=== PATIENT | female | born 1985 | race Hispanic/Latino ===

== ENCOUNTER 2021-01-08 10:44 | Emergency (ER) | payer MEDICAID ==
[2021-01-08] MEDS ORDERED: SODIUM CHLORIDE 0.9% 1000ML 1,000 ML IV ONE (13:08)
[2021-01-08] MEDS ORDERED: ONDANSETRON HCL 4 MG/2 ML VIAL ONE (13:08)
[2021-01-08 13:17] LABS: BASOPHILS % (AUTO) 0.6 % (0.0-5.0); EOSINOPHILS % (AUTO) 1.6 % (0.0-8.0); HEMATOCRIT 40.8 % (36-48); LYMPHOCYTES % (AUTO) 30.4 % (21.0-51.0); MEAN CORPUSCULAR HEMOGLOBIN 27.6 pg (27.0-33.0); MEAN CORPUSCULAR HGB CONC 32.1 g/dL (32.0-36.0); MEAN CORPUSCULAR VOLUME 86.1 fL (79-99); MONOCYTES % (AUTO) 4.8 % (3.0-13.0); NEUTROPHILS % (AUTO) 62.4 % (40.0-77.0); PLATELET COUNT (AUTO) 248 K/uL (130-400); RED BLOOD CELL COUNT(AUTO) 4.74 MIL/uL (4.00-5.50); RED CELL DISTRIBUTION WIDTH 12.8 % (11.0-15.5); WHITE BLOOD COUNT (AUTO) 8.5 K/uL (4.8-10.8)
[2021-01-08 13:28] LABS: CREATININE 0.7 mg/dL (0.5-1.5); POTASSIUM 4.1 mmol/L (3.5-5.1)
[2021-01-08 13:32] LABS: ALBUMIN 3.7 g/dL (3.5-5.0); BILIRUBIN,TOTAL 0.3 mg/dL (0.2-1.0)
[2021-01-08 13:45] LABS: APPEARANCE,URINE CLEAR (CLEAR); BILIRUBIN,URINE NEGATIVE (NEGATIVE); COLOR,URINE YELLOW (YELLOW); GLUCOSE, URINE (UA) NEGATIVE (NEGATIVE); KETONES,URINE NEGATIVE (NEGATIVE); LEUKOCYTE ESTERASE ,URINE NEGATIVE (NEGATIVE); NITRATE,URINE NEGATIVE (NEGATIVE); OCCULT BLOOD,URINE NEGATIVE (NEGATIVE); PH,URINE 6.5 (5.0-8.0); PROTEIN,URINE NEGATIVE (NEGATIVE); UROBILINOGEN,URINE 0.2 mg/dL (0.2-1.0)
[2021-01-08] MEDS ORDERED: IOHEXOL 350 MG/ML 100ML INFUS..BTL IV ONE (14:17)
[2021-01-08] MEDS ORDERED: MAGNESIUM CITRATE 296 ML SOLUTION ONE (15:02)
[2021-01-08] MEDS ORDERED: LACTULOSE 20 GM/30 ML UDCUP ONE (15:02)
== END 2021-01-08 15:10 | disposition home or self-care (01) ==
LOC: EDH 10:44
DX: K59.00 Constipation, unspecified (principal); Z91.041 Radiographic dye allergy status; Z88.0 Allergy status to penicillin; Z98.890 Other specified postprocedural states
CPT/HCPCS: 36415; 74177; 80053; 81003; 81025; 83690; 84484; 84702; 85025; 96374; 99285; J2405; J7030; Q9967

== ENCOUNTER 2021-08-05 16:45 | Emergency (ER) | payer MEDICAID ==
[~2021-08-05] VITALS: Ht 160 cm; Wt 120.7 kg
[2021-08-05 16:50] VITALS: BP 121/74
[2021-08-05 17:36] LABS: BASOPHILS % (AUTO) 0.6 % (0.0-5.0); HEMATOCRIT 37.8 % (36-48); LYMPHOCYTES % (AUTO) 27.9 % (21.0-51.0); MEAN CORPUSCULAR HEMOGLOBIN 27.8 pg (27.0-33.0); MEAN CORPUSCULAR HGB CONC 32.5 g/dL (32.0-36.0); MEAN CORPUSCULAR VOLUME 85.3 fL (79-99); MONOCYTES % (AUTO) 7.2 % (3.0-13.0); NEUTROPHILS % (AUTO) 63.1 % (40.0-77.0); PLATELET COUNT (AUTO) 268 K/uL (130-400); RED BLOOD CELL COUNT(AUTO) 4.43 MIL/uL (4.00-5.50); RED CELL DISTRIBUTION WIDTH 12.3 % (11.0-15.5); WHITE BLOOD COUNT (AUTO) 8.2 K/uL (4.8-10.8)
[2021-08-05 17:42] LABS: CARBON DIOXIDE 28 mmol/L (21-32); CHLORIDE 105 mmol/L (101-111); CREATININE 0.8 mg/dL (0.5-1.5); GLOMERULAR FILTR. RATE CALC 87 mL/min (>60); GLUCOSE,RANDOM 90 mg/dL (70-105); POTASSIUM 3.3 mmol/L (3.5-5.1); SODIUM SERUM 140 mmol/L (136-145); UREA NITROGEN, BLOOD 11 mg/dL (7-18)
[2021-08-05 17:53] LABS: ALANINE AMINOTRANSFERASE 16 U/L (12-78); ALBUMIN 3.6 g/dL (3.5-5.0); ASPARTATE AMINOTRANSFERASE 10 U/L (10-37); BILIRUBIN,TOTAL 0.2 mg/dL (0.2-1.0); CREATINE KINASE, TOTAL 30 U/L (21-232); MYOGLOBIN 18 ng/mL (10-92); TOTAL PROTEIN, SERUM 7.4 g/dL (6.0-8.3)
[2021-08-05] MEDS ORDERED: KETOROLAC 30MG VIAL (30MG/ML) IM ONE (20:00)
[2021-08-05] MEDS ORDERED: MECLIZINE HCL 25 MG TABLET PO ONE (20:00)
[2021-08-05] MEDS ORDERED: FIORIT PO (20:10)
== END 2021-08-05 20:31 | disposition home or self-care (01) ==
LOC: EDH 16:45
DX: G43.909 Migraine, unspecified, not intractable, without status migrainosus (principal); R25.3 Fasciculation
CPT/HCPCS: 36415; 80053; 82550; 83874; 84484; 85025; 96372; 99283; J1885

== ENCOUNTER → 2023-03-06 | Outpatient (CLI) | payer MEDICAID ==
[~2023-03-06] MED LIST: FIORIT PO
== END | disposition home or self-care (01) ==
LOC: SHCH 09:51
PROVIDERS: ATTEND Internal Medicine Cardiovascular Disease
DX: R94.31 Abnormal electrocardiogram [ECG] [EKG] (principal)
CPT/HCPCS: 93306

== ENCOUNTER 2024-09-20 13:38 | Emergency (ER) | payer MEDICAID ==
[~2024-09-20] VITALS: Ht 160 cm; Wt 68.0 kg
--- NOTE | 2024-09-20 13:52 | ERN ---
ED Note History of Present Illness Stated Complaint: SYNCOPE Chief Complaint: Syncope Time Seen by MD: 13:44 Dictation: PATIENT IS A 39-YEAR-OLD FEMALE HERE WITH HER WITH COMPLAINTS OF HEAVY VAGINAL BLEEDING AND HAD A NEAR SYNCOPAL EPISODE HOUR PRIOR TO ARRIVAL AND CALLED EMS FROM A [facility]. SHE HAS PAPERWORK THAT SHOWED SHE WAS JUST DISCHARGED FROM [facility] AFTER BEING SEEN ON 09/19, AND 09/20 TODAY AND DIAGNOSED WITH A MISCARRIAGE. SHE STATES SHE WAS UNAWARE THAT SHE WAS . SHE STATES SHE IS STILL HAVING HEAVY VAGINAL BLEEDING HOWEVER HAS NOT BEEN TO SEE HER DOCTOR. Allergies: Coded Allergies: Penicillins (Unverified Allergy, Unknown, 08/05/21) iodine (Unverified Allergy, Unknown, 08/05/21) Home Meds Active Scripts Butalb/Acetaminophen/Caffeine (Fioricet) 1 Tab Tab, 1 TAB PO TID for pain, #25 TAB Prov:ROCIO WILSON MD 08/05/21 Past Medical History Past Medical History: Other Additional Past Medical Hx: ORTHOSTATIC HYPOTENSION Surgical History: Social History: Lives with family : 5 Para: 3 Aborts: 2 RN Note Reviewed/Agreed w/PFSH: Yes Review of System Dictation CONSTITUTIONAL: NEGATIVE EXCEPT FOR HPI HEAD/FACE: NEGATIVE EXCEPT FOR HPI EENT: NEGATIVE EXCEPT FOR HPI RESPIRATORY: NEGATIVE EXCEPT FOR HPI GASTROINTESTINAL/ABDOMINAL: NEGATIVE EXCEPT FOR HPI GENITOURINARY: NEGATIVE EXCEPT FOR HPI VAGINAL BLEEDING MUSCULOSKELETAL: NEGATIVE EXCEPT FOR HPI INTEGUMENTARY: NEGATIVE EXCEPT FOR HPI NEUROLOGICAL/PSYCH: NEGATIVE EXCEPT FOR HPI HEMATOLOGIC/LYMPHATIC: NEGATIVE EXCEPT FOR HPI ALL SYSTEMS NEGATIVE, EXCEPT NOTED ABOVE. 13 POINT REVIEW OF SYSTEMS ASSESSED AND ALL NEGATIVE EXCEPT FOR ABOVE. Initial Vital Sign VS Vital Signs Date Time Temp Pulse Resp B/P (MAP) Pulse Ox O2 Delivery O2 Flow Rate FiO2 09/20/24 13:39 97.9 83 16 108/74 100 Room Air 0 09/20/24 14:00 21 Physical Exam Dictation VITAL SIGNS REVIEWED APPEARS WEAK GENERAL APPEARANCE: ALERT, ORIENTED X 3, NO ACUTE DISTRESS, WELL DEVELOPED, NOURISHED. HEAD AND FACE: NON-TRAUMATIC. EYES: PERRL, PINK CONJUNCTIVAS, EYELID NO TRAUMA, ANTERIOR CHAMBER WITH ARCUS SENILIS. EARS: PINNAS INTACT AND NO SIGNS OF TRAUMA OR ERYTHEMA EAR CANALS CLEAR AND NO DISCHARGE TM NO ERYTHEMA NOSE: NO DISCHARGE, NO BLEEDING. OROPHARYNX: MOUTH NORMAL, TONGUE PINK, PHARYNX CLEAR,NO ERYTHEMA, TONSILS NO EXUDATES, NO ABSCESSES NOTED, MUCOUS MEMBRANE MOIST NECK: SUPPLE, NON-TENDER, NO THYROMEGALY, NO MASSES, NO JVD, NO BRUITS BREAST:DEFERRED CHEST:NO TENDERNESS, NO CREPITUS, NO PARADOXICAL MOVEMENT, NO RETRACTIONS LUNGS:CLEAR, WELL-VENTILATED, SYMMETRIC, NO RALES, NO WHEEZING, NO RHONCHI, NO STRIDOR, GOOD BREATH SOUNDS BILATERALLY HEART: REGULAR RATE, REGULAR RHYTHM, NO MURMUR, NO GALLOPS VASCULAR: NO PERIPHERAL EDEMA, ABDOMEN: SOFT, POSITIVE BOWEL SOUNDS, NONDISTENDED, NO GUARDING, NONTENDER, NO REBOUND, NO MASSES NO HEPATOMEGALY, NO SPLENOMEGALY, NO HERNÁNDEZ'S SIGN, NO HERNIAS. RECTAL: DEFERRED GENITAL: DEFERRED NEUROLOGICAL: NORMAL SPEECH, MOTOR FUNCTION INTACT, SENSORY FUNCTION INTACT MUSCULOSKELETAL: NECK NONTENDER, FULL RANGE OF MOTION, BACK NONTENDER, FULL RANGE OF MOTION, EXTREMITIES: NONTENDER, FULL RANGE OF MOTION SKIN: COLOR PINK, DRY, NO TURGOR, NO RASH, NO LACERATIONS, NO ABRASIONS, NO CONTUSIONS. LYMPHATIC: DEFERRED Results (Laboratory/Radiology) Laboratory/Radiology Laboratory Tests Test 09/20/24 14:00 White Blood Count 12.6 K/uL (4.8-10.8) H Red Blood Count 3.92 MIL/uL (4.00-5.50) L Hemoglobin 10.8 g/dL (12.0-16.0) L Hematocrit 33.6 % (36-48) L Mean Corpuscular Volume 85.7 fL (79-99) Mean Corpuscular Hemoglobin 27.6 pg (27.0-33.0) Mean Corpuscular Hemoglobin Concent 32.1 g/dL (32.0-36.0) Red Cell Distribution Width 13.2 % (11.0-15.5) Platelet Count 290 K/uL (130-400) Mean Platelet Volume 10.0 fL (7.5-10.5) Immature Granulocyte % (Auto) 0.4 % (0-1) Neutrophils (%) (Auto) 79.2 % (40.0-77.0) H Lymphocytes (%) (Auto) 16.1 % (21.0-51.0) L Monocytes (%) (Auto) 3.8 % (3.0-13.0) Eosinophils (%) (Auto) 0.2 % (0.0-8.0) Basophils (%) (Auto) 0.3 % (0.0-5.0) Neutrophils # (Auto) 10.0 K/uL (1.8-7.7) H Lymphocytes # (Auto) 2.0 K/uL (1.0-4.8) Monocytes # (Auto) 0.5 K/uL (0.1-1.0) Eosinophils # (Auto) 0.03 K/uL (0.00-0.70) Basophils # (Auto) 0.04 K/uL (0.00-0.20) Absolute Immature Granulocyte (auto 0.05 K/uL (0-1) Nucleated Red Blood Cells 0.0 % (0.0-0.19) Prothrombin Time 11.4 SEC (9.6-11.6) Prothromb Time International Ratio 1.02 (0.85-1.15) Activated Partial Thromboplast Time 28.5 SEC (26.3-35.5) Sodium Level 135 mmol/L (136-145) L Potassium Level 4.4 mmol/L (3.5-5.1) Chloride Level 102 mmol/L (101-111) Carbon Dioxide Level 25 mmol/L (21-32) Blood Urea Nitrogen 8 mg/dL (7-18) Creatinine 0.8 mg/dL (0.5-1.0) Glomerular Filtration Rate Calc 97 mL/min (>90) Random Glucose 149 mg/dL (70-105) H Total Calcium 8.4 mg/dL (8.5-10.1) L Troponin I High Sensitivity < 4 ng/L (4-50) L Human Chorionic Gonadotropin, Quant 54976 mIU/mL (0-5) H 1450/no IUP seen on ultrasound. Clot seen in cervix only Labs Reviewed?: Yes ED Course ED Course Orders Procedure Category Date Status Time Cbc With Differential LAB 09/20/24 Complete 13:49 Hcg,Quantitative LAB 09/20/24 Complete 13:49 0.9%Nacl 1000ml (Ns PHA 09/20/24 Complete 1000ml) 14:00 Type And Screen BBK 09/20/24 Complete 13:49 Basic Metabolic Panel LAB 09/20/24 Complete 13:49 Pt And Ptt LAB 09/20/24 Complete 13:49 12 Lead Ekg Tracing- EKG 09/20/24 Complete Technical 14:21 Troponin I High LAB 09/20/24 Complete Sensitivity 14:21 Us Pelvic Non-Ob Comp US 09/20/24 Resulted 13:49 Midodrine Hcl 5 Mg PHA 09/20/24 Logged Tablet (Proamatine 5 15:30 Current Medications Medications (Trade) Dose Ordered Sig/Stephen Route PRN Reason Start Time Stop Time Status Last Admin Dose Admin Midodrine (PROAMatine 5 MG TABLET) 10 mg ONCE ONCE PO 09/20/24 15:30 09/20/24 15:31 UNV Sodium Chloride 1,000 ml @ 0 mls/hr ONCE ONCE IV 09/20/24 14:00 09/20/24 14:01 DC 09/20/24 14:44 Vital Signs Date Time Temp Pulse Resp B/P (MAP) Pulse Ox O2 Delivery O2 Flow Rate FiO2 09/20/24 14:45 97.9 75 18 107/73 100 Room Air* 0 09/20/24 14:20 97.9 69 18 104/55 100 Room Air* 0 21 09/20/24 14:08 62 16 59/40 98 Room Air* 0 09/20/24 14:00 89 20 119/69 98 Room Air* 0 09/20/24 13:39 97.9 83 16 108/74 100 Room Air 0 1425/PATIENT HAD A NEAR SYNCOPAL EPISODE HIM LAVERN DOWN TO HEART RATE 59 WHILE LYING IN BED. SHE IS HEMODYNAMICALLY STABLE IS ALERT CURRENTLY RECEIVING A BOLUS OF NORMAL SALINE. LABS STILL PENDING NO CHEST PAIN NO BACK PAIN NO HEADACHE. 1507/patient is hemodynamically stable she states she has a history of near syncopal episodes and hypotension. She sees /hazardous materials analyst's and he prescribed midodrine 10 mg every 6 hours while awake. She has only had one dose this morning and we will be given to her now. We will be discharged home and is aware she had a miscarriage she is also aware we do not have medical billing instructor services t hat this hospital in the see her doctor for referral however there was no retained products of conception. Medical Decision Making MDM MDM: Differential diagnosis: Complete a B, incomplete a B, anemia/dehydration/electrolyte imbalance/dehydration/arrhythmia Rationale: Tests considered and ordered secondary to shared decision making include: EKG/labs/radiology Previous outside records reviewed: Old ER visits. Risk of complication and/or morbidity or mortality of patient management: None Medications-Per medication reconciliation Need for hospitalization: Patient does not meet criteria for hospitalization. No Need for emergency major/minor surgery: No There are no social concerns with this patient. Prescription drug management none Prescriptions will include symptomatic care Patient's prior external medical records from other ER visits were reviewed by me as indicated. Prior testing and results from previous visits were reviewed. Prior tests were taken into account with medical decision making and resource utilization, independent historian/historians were used to obtain complete medical history. I independently interpreted the test that were performed, results were reviewed by me and considered findings on radiology if ordered. Medical management and examination interpretation discussions were had by me with other qualified healthcare professionals as indicated for the patient's care. DX & DISP Disposition: Discharge Departure Impression: Primary Impression: Near syncope Additional Impressions: Complete miscarriage, Hyperkalemia, History of hypotension Condition: Stable Additional Instructions: Follow-up with primary care provider in 1 to 2 days. Take medications as directed here in the emergency room. Okay to continue home medications unless otherwise discussed during your visit in the emergency room today. Return to your nearest emergency room if symptoms worsen or if there is no improvement. Call 911 if you need immediate assistance. Take Tylenol or Motrin [id number] as needed and if no contraindications are present. Increase oral hydration. A wound culture or urine culture was ordered here in the emergency room department please follow-up with primary care provider and advise them to get repeat ports from our facility. If you had any Gato wrap/splints that were applied here, please do not remove them until you see your primary care or specialty. Take your midodrine 10 mg every 6 hours as directed by your hazardous materials analyst's. See your primary care doctor today for referral to an soap press feeder doctor Referrals: MAXIM TOBIAS DO (PCP) Time of Disposition: 15:11 I have reviewed the case, and I agree with, Diagnosis and Plan JOSSE IBARRA NP Sep 20, 2024 13:52
--- NOTE | 2024-09-20 14:10 | NUR ---
pt sustained brief syncopal episode. witnessed by EMS, nursing staff and family. pt was noted to have become hypotensive and heart rate noted to have dropped over 20 bpm. provider ALICIA yoo was informed and came to evaluate pt at bedside. pt was placed in trendelenburg position. bp was noted to have recovered while provider was talking to pt.
[2024-09-20 14:16] LABS: BASOPHILS # (AUTO) 0.04 K/uL (0.00-0.20); BASOPHILS % (AUTO) 0.3 % (0.0-5.0); EOSINOPHILS # (AUTO) 0.03 K/uL (0.00-0.70); EOSINOPHILS % (AUTO) 0.2 % (0.0-8.0); HEMATOCRIT 33.6 % (36-48); IMMATURE GRANULOCYTE ABSOLUTE 0.05 K/uL (0-1); LYMPHOCYTES % (AUTO) 16.1 % (21.0-51.0); MEAN CORPUSCULAR HEMOGLOBIN 27.6 pg (27.0-33.0); MEAN CORPUSCULAR HGB CONC 32.1 g/dL (32.0-36.0); MEAN CORPUSCULAR VOLUME 85.7 fL (79-99); MONOCYTES # (AUTO) 0.5 K/uL (0.1-1.0); MONOCYTES % (AUTO) 3.8 % (3.0-13.0); NEUTROPHILS % (AUTO) 79.2 % (40.0-77.0); PLATELET COUNT (AUTO) 290 K/uL (130-400); RED BLOOD CELL COUNT(AUTO) 3.92 MIL/uL (4.00-5.50); RED CELL DISTRIBUTION WIDTH 13.2 % (11.0-15.5); WHITE BLOOD COUNT (AUTO) 12.6 K/uL (4.8-10.8)
[2024-09-20 14:27] LABS: CREATININE 0.8 mg/dL (0.5-1.0); INR 1.02 (0.85-1.15); POTASSIUM 4.4 mmol/L (3.5-5.1); PROTHROMBIN TIME 11.4 SEC (9.6-11.6)
[2024-09-20 14:28] LABS: PARTIAL THROMBOPLASTIN TIME 28.5 SEC (26.3-35.5)
[2024-09-20] MEDS: 0.9%NACL 1000ML 1,000 ML IV ONE (14:44)
--- NOTE | 2024-09-20 14:48 | HMCIMG ---
US PELVIC NON-OB COMP HISTORY: Vaginal bleed COMPARISON: None TECHNIQUE: Transabdominal pelvic ultrasound study was performed. FINDINGS: The uterus measures 10.2 x 4.7 x 5.7 cm. The right ovary measures 2.8 x 1.0 x 1.3 cm. The left ovary is not seen. Flow is seen in the right ovary. Endometrial thickness is 12 mm. No evidence of intrauterine is seen. Beta-hCG correlation is recommended. No free fluid is seen in the cul-de-sac. Possible clot is seen in the cervix. IMPRESSION: 1. No adnexal mass is seen.
--- NOTE | 2024-09-20 14:51 | EKG ---
[facility] Test Date: 2024-09-20 Test Time: 14:39:49 Pat Name: MIGUEL YI Department: ED Room: Gender: F Speech Language Pathologist Prn: [id number] : 1985 Requested By: JOSSE IBARRA Order Number: [id number] Reading MD: Ok López Measurements Intervals Naylor Rate: 62 P: 49 [place]: 170 QRS: 26 QRSD: 91 T: 41 QT: 411 QTc: 417 Interpretive Statements Sinus rhythm Compared to ECG 04/13/2022 15:28:55 Sinus bradycardia no longer present Electronically Signed On 09-20-2024 17:10:16 CLASSER by Ok López Please click the below link to view image of tracing.
[2024-09-20] MEDS: miDODRine HCL 5 MG TABLET PO ONE (15:18)
[2024-09-20 16:10] VITALS: BP 114/61; PULSE 65; RESP 18; TEMP 97.9; O2SAT 100
== END 2024-09-20 16:11 | disposition home or self-care (01) ==
LOC: EDH 13:38
DX: O03.83 Metabolic disorder following complete or unspecified spontaneous abortion (principal); E87.5 Hyperkalemia; R10.2 Pelvic and perineal pain; Z88.0 Allergy status to penicillin; Z88.8 Allergy status to other drugs, medicaments and biological substances; Z91.041 Radiographic dye allergy status; Z98.890 Other specified postprocedural states
CPT/HCPCS: 99285; 76856; 84484; 80048; 84702; 85025; 85610; 85730; 86850; 86900; 86901; 36415; 93005; J7030